=== PATIENT | male | born 1940 | race Caucasian/White ===

== ENCOUNTER 2020-12-03 08:36 | Inpatient (IN) | payer MEDICARE, BC ==
[2020-12-03 11:24] VITALS: BMI 24.9
[2020-12-03] MEDS ORDERED: Dextrose 50% Abboject 50 ML SYRINGE SLOW IVP PRN (12:04)
[2020-12-03] MEDS ORDERED: Ondansetron PF 4 MG/2 ML Vial IVP PRN (12:04)
[2020-12-03] MEDS ORDERED: Morphine 2 MG/ML VIAL SLOW IVP PRN (12:04)
[2020-12-03] MEDS ORDERED: Ondansetron ODT 4 MG TAB PO PRN (12:04)
[2020-12-03] MEDS ORDERED: Dextrose 5% in Water 1,000 ML IV PRN (12:04)
[2020-12-03] MEDS ORDERED: traMADol HCl 50 MG TAB PO PRN (12:09)
[2020-12-03] MEDS ORDERED: Cyclobenzaprine 10 MG TAB PO PRN (12:09)
[2020-12-03] MEDS ORDERED: Sodium Chloride 0.9% 1,000 ML IV SCH (12:15)
[2020-12-03] MEDS: Acetaminophen 500 MG TAB PO SCH ×2 (12:46→18:43)
[2020-12-03] MEDS: traMADol HCl 50 MG TAB PO SCH ×2 (12:47→18:42)
[2020-12-03 12:49] LABS: #Lymphocytes 0.9 thou/uL (1.20-3.40); #Monocytes 1.4 thou/uL (0.11-0.59); #Neutrophils 7.5 thou/uL (1.40-6.50); %Basophils 0.2 % (0.0-1.0); %Eosinophils 0.2 % (0.0-10.0); %Monocytes 14.1 % (0.0-10.0); %Neutrophils 76.5 % (42.0-75.0); Hemoglobin 11.6 g/dL (14.0-18.0); Mean Corpuscular HGB CONC 34.2 g/dL (32.0-36.0); Mean Corpuscular Hemoglobin 34.8 pg (27.0-31.0); Mean Platelet Volume 6.1 fL (7.4-10.4); Platelet Count 215 thou/uL (130-400); RBC Distribution Width 11.7 % (11.5-14.5); Red Blood Cell (RBC) Count 3.33 mill/uL (4.70-6.10); White Blood Cell (WBC) Count 9.8 thou/uL (4.8-10.8)
--- NOTE | 2020-12-03 12:49 | PDOC.H&P ---
- History & Physical HPI: Patient is a 80 M with a history of HTN who presents today as a direct admit from [place] for R hip fracture. [place] when he reports that he took a sharp turn and fell on his right side. He was helped up but has not been able to put weight on the leg since. He denies pain at this time other than when he moves his leg. He denies hitting his head or loss of consciousness. Denies feeling dizzy or lightheaded. He does admit to having had a few drinks that day. He denies history of falls. At baseline he ambulates without use of cane or walker. ROS: Review of systems negative except as indicated above. PMH: Hypertension PSH: Cataract surgery Social history: Lives at home with . Admits to alcohol use daily with dinner. Previously smoked 1 PPD for about 40 years. Denies illicit drug use. Medications: Allergies: NKDA Physical Exam- Vitals: General
[2020-12-03 13:10] LABS: ALT (SGPT) 15 U/L (8-55); AST (SGOT) 24 U/L (5-34); Albumin 3.9 g/dL (3.4-4.8); Alkaline Phosphatase 100 U/L (40-110); Anion Gap 15 mmol/L (10-20); BUN (Urea Nitrogen) 22 mg/dL (8.4-25.7); Bilirubin, Total 1.2 mg/dL (0.2-1.2); Calc. Creatinine Clearance 43 mL/min (70-130); Calcium 9.1 mg/dL (7.8-10.44); Carbon Dioxide 28 mmol/L (23-31); Chloride 92 mmol/L (98-107); Globulin 2.8 g/dL (2.4-3.5); Glucose 105 mg/dL (83-110); Magnesium 1.8 mg/dL (1.6-2.6); Phosphorus 5.1 mg/dL (2.3-4.7); Protein, Total 6.7 g/dL (5.8-8.1); Sodium 130 mmol/L (136-145)
--- NOTE | 2020-12-03 13:11 | RAD ---
RADIOGRAPH CHEST 1 VIEW: DATE: 12/03/2020 HISTORY: 80-year-old male for preoperative clearance FINDINGS: There is hyperinflation of the lungs, consistent with COPD. There is no evidence of airspace density, pulmonary edema, cardiomegaly, or pneumothorax. The lateral costophrenic angles are not effaced. IMPRESSION: 1) No acute cardiopulmonary findings. 2) emphysema.
--- NOTE | 2020-12-03 14:03 | RAD ---
XR Hip Rt 2-3 View INDICATION: 80-year-old male with concern for hip fracture COMPARISON: Right femur radiograph dated 12/03/2020 from [facility] FINDINGS: Bones: As seen on the comparison examination is a comminuted, angulated right hip intertrochanteric f racture. Hip joint: There is mild osteoarthrosis of the right hip. SI joints and symphysis pubis: Symphysis is not well seen. SI joint is normal-appearing. Intrapelvic contents: There are numerous phleboliths within the right hemipelvis. Surrounding soft tissues: There are moderate vascular calcifications seen involving the visualized va sculature. IMPRESSION: 1. Angulated comminuted right hip intertrochanteric fracture.
[2020-12-03] MEDS ORDERED: CEFAZOLIN 2 GM in Premix Bag 1 BAG IVPB SCH (14:15)
--- NOTE | 2020-12-03 15:00 | CON ---
DATE OF CONSULTATION: HISTORY OF PRESENT ILLNESS: We were asked by Emergency Room to see patient. The patient was at a casino in [place]. He went to step and turned and body did not follow and he ended up fracturing his right hip. loaded the patient into the car. They drove back to [place] thinking he might be able to be looked at there and fixed, and he was then transferred to our facility. Currently, he is resting in bed in room 3305 in no acute distress as long as we do not move him. Otherwise, the hip becomes quite painful. He said the ride to home was fairly uneventful, but he did have a good amount of pain with any bumps or jerks of the vehicle. He denies any other injuries. He did not have shortness of breath. He did not hit his head. He did not pass out. He remembers the event unfortunately vividly. The patient also has fairly thin skin and has an abrasion to his right forearm that has been dressed. PAST MEDICAL HISTORY: Hypertension. MEDICATIONS: Hypertension med. ALLERGIES: NO KNOWN DRUG ALLERGIES. PAST SURGICAL HISTORY: Cataracts. FAMILY HISTORY: For this event is noncontributory. SOCIAL HISTORY: He resides with in [place]. He is retired from the railroad. Quit smoking in 2004. Has occasional EtOH beverage before dinner. No drug products whatsoever. REVIEW OF SYSTEMS: A little forearm pain and right hip pain. Otherwise, denies any chest pain, shortness of breath, bowel or bladder problems. No headaches. We discussed other issues in regard to his health, and for the most part, he is a healthy man and denies rest of review of systems. PHYSICAL EXAMINATION: GENERAL: Well-nourished, well-developed male, alert, pleasant, in no acute distress. Speech clear. Affect pleasant. Answers questions appropriately. He is alert and oriented x3. HEENT: Scalp atraumatic. Face symmetric. Tongue midline. NECK: Supple. Trachea midline. MUSCULOSKELETAL: Upper extremities; equal size, shape, symmetry, normal bulk and tone. It is noted that he does have fairly thin skin to the arms and has some bruises on his arms with an abrasion to the right forearm. He is otherwise moving his upper extremities well. Strengths are intact. Respirations 16, in no acute distress. He has no pain with me rocking his pelvis, just when I put pressure near his right hip. Lower extremity exam; also equal size, shape, symmetry, normal bulk and tone. He does have some tenderness to palpation over the right groin, hip area. Movement causes increased pain. Otherwise, he is able to move his feet and toes bilaterally. Sensations, pulses equal. Cap refill is good. Feet are warm to the touch. IMAGING DATA: X-rays show an intertrochanteric fracture on the right. LABORATORY DATA: Hemoglobin 11.6, hematocrit 33.9, platelets normal. Chemistries, sodium is a little low at 130 . COVID is hopefully pending, I will check his lab orders for this. ASSESSMENT: Fall with ensuing right hip fracture. No loss of consciousness. PLAN: I spoke with the patient. After reviewing x-rays, I feel he would benefit from a dynamic hip screw (DHS) procedure. I explained the procedure to the patient. We will plan on doing this in the morning, so he can eat today and drink, and then he will be n.p.o. after midnight. He has already been placed on the surgical schedule. We went over risks and benefits of surgery. His questions and concerns have been addressed and he is amenable to go forth with surgery. I let him know his can come up and see him. He will probably need a COVID test if it has not already been ordered. Preop antibiotics ordered. If the patient or has questions prior to surgery tomorrow morning, we will go over them at that time with them. Job ID: [id number]
--- NOTE | 2020-12-03 15:54 | HP ---
CONSULTS: Orthopedic Surgery, Dr. Ray. CHIEF COMPLAINT: Mechanical fall last night, right hip pain. HISTORY OF PRESENT ILLNESS: This is a 80-year-old gentleman with a past medical history of hypertension who presented as a direct admit from [place] [facility] with right hip pain and right hip fracture. The patient states that he was at a casino when he tripped and fell last night, landing onto his right side. The patient did not hit his head or lose consciousness. The patient was assisted from the ground, but was unable to bear weight. The patient and his spouse drove back to his home in [place], where he seek to care. The patient did admit to having a few alcoholic beverages. The patient denied feeling lightheaded, dizzy, shortness of breath, or chest pain prior to the event. The patient ambulates without any assistance. REVIEW OF SYSTEMS: A 10-point review of systems is negative unless otherwise indicated in the above HPI. PAST MEDICAL HISTORY: Hypertension. PAST SURGICAL HISTORY: Cataract surgery. SOCIAL HISTORY: Lives at home with his , occasional alcohol use with dinner, previously smoked one pack a day for 40 years, denies illicit drug use. MEDICATIONS: Unable to obtain. He states he takes a blood pressure pill. ALLERGIES: NO KNOWN DRUG ALLERGIES. FAMILY HISTORY: Not pertinent. PHYSICAL EXAMINATION: VITAL SIGNS: Temperature 98.0, pulse 61, respirations 20, SpO2 of 93% on room air, blood pressure 138/75. GENERAL: Well-appearing elderly male, awake, alert, in no distress. HEENT: Head is atraumatic and normocephalic. Pupils are equal bilaterally. Midface is stable. Mucous membranes are moist. NECK: No cervical spine tenderness. Normal range of motion of neck. Trachea is midline. No JVD. RESPIRATORY: Good inspiratory and expiratory effort. Bilateral breath sounds clear. CARDIAC: Regular rate and regular rhythm. Mild pedal edema, nonpitting. ABDOMEN: Soft, nontender, nondistended. EXTREMITIES: Tenderness to palpation, right hip. Right lower extremity is shortened and externally rotated. Neurovascularly intact x4. The patient is able to dorsiflex and plantar flex. Strength is 5/5. NEUROLOGIC: No focal deficits. GCS is 15. SKIN: Warm and dry. Normal color. LABORATORY DATA: WBC 9.8, RBC 3.33, hemoglobin 11.6, hematocrit 33.9, platelets 215. Sodium 130, potassium 5.0, chloride 92, creatinine 1.59, estimated GFR 42, glucose 105, calcium 9.1, phosphorus 5.1, magnesium 1.8, AST 24, ALT 15, alkaline phosphatase 100, albumin 3.9. DIAGNOSTIC DATA: Chest x-ray; impression, 1. No acute cardiac cardiopulmonary findings. 2. Emphysema. Right hip x-ray; impression, angulated comminuted right hip intertrochanteric fracture. ASSESSMENT: 1. Mechanical fall. 2. Right intertrochanteric hip fracture. 3. Hyponatremia. PLAN: Admit to the surgical floor. Pain control. Regular diet today. N.p.o. after midnight as Orthopedic Surgery plans to take the patient to the OR tomorrow morning for repair. PT and OT to evaluate and treat postop. We will place a rehab screen for continued physical therapy. The plan was discussed with the attending who agrees. Job ID: [id number]
[2020-12-03] MEDS: Sodium Chloride 0.9% 1,000 ML IV SCH ×2 (17:11→21:22)
[2020-12-03] MEDS: Famotidine 20 MG TAB PO SCH (21:19)
[2020-12-03] MEDS: Senokot S 8.6-50 MG TAB PO SCH (21:19)
[2020-12-03] MEDS: Carvedilol 25 MG TAB PO SCH (21:20)
[2020-12-03 22:20] LABS: SARS-CoV-2 PCR by NAA Not Detected (NotDetected)
[2020-12-04] MEDS: Acetaminophen 500 MG TAB PO SCH ×4 (00:45→20:06)
[2020-12-04] MEDS: traMADol HCl 50 MG TAB PO SCH ×4 (00:46→20:07)
[2020-12-04 06:18] LABS: Hemoglobin 9.3 g/dL (14.0-18.0); Mean Corpuscular HGB CONC 33.6 g/dL (32.0-36.0); Mean Platelet Volume 6.5 fL (7.4-10.4); Platelet Count 188 thou/uL (130-400); RBC Distribution Width 11.8 % (11.5-14.5); Red Blood Cell (RBC) Count 2.73 mill/uL (4.70-6.10); White Blood Cell (WBC) Count 8.6 thou/uL (4.8-10.8)
[2020-12-04 06:31] LABS: Band 10 % (5-11); Lymphocytes 7 % (21-51); MDiff Complete? YES; Monocytes 11 % (0-10); Neutrophil 72 % (42-75)
[2020-12-04 06:52] LABS: Phosphorus 4.4 mg/dL (2.3-4.7)
[2020-12-04 06:55] LABS: Anion Gap 11 mmol/L (10-20); BUN (Urea Nitrogen) 30 mg/dL (8.4-25.7); Calc. Creatinine Clearance 44 mL/min (70-130); Calcium 8.3 mg/dL (7.8-10.44); Carbon Dioxide 27 mmol/L (23-31); Chloride 96 mmol/L (98-107); Glucose 113 mg/dL (83-110); Magnesium 1.9 mg/dL (1.6-2.6); Potassium 4.6 mmol/L (3.5-5.1); Sodium 129 mmol/L (136-145)
[2020-12-04] MEDS ORDERED: Fentanyl 100 MCG/2 ML VIAL ONE (08:08)
[2020-12-04] MEDS ORDERED: Phenylephrine 10 MG/ML VIAL ONE (08:36)
[2020-12-04] MEDS ORDERED: Ketamine 50 MG/ML (10ML VIAL) ONE (08:36)
[2020-12-04] MEDS ORDERED: Albumin 5% 500 ML ONE (08:36)
[2020-12-04] MEDS: Carvedilol 25 MG TAB PO SCH ×2 (09:00→20:07)
[2020-12-04] MEDS: Polyethylene Glycol 3350 17 GM Packet PO SCH (09:00)
[2020-12-04] MEDS: Famotidine 20 MG TAB PO SCH ×2 (09:00→20:06)
[2020-12-04] MEDS: Senokot S 8.6-50 MG TAB PO SCH ×2 (09:00→20:07)
[2020-12-04] MEDS ORDERED: Midazolam HCl 2 mg/2 ml Vial ONE (09:01)
--- NOTE | 2020-12-04 09:30 | RAD ---
EXAM: XR Hip Rt 2-3 View PROVIDED CLINICAL HISTORY: ORIF COMPARISON: 12/03/2020 FINDINGS: 2 spot fluoroscopic images of the right hip demonstrate interval ORIF of previously described intertr ochanteric femoral fracture with associated improved alignment. IMPRESSION: As above.
[2020-12-04] MEDS ORDERED: Dexamethasone 20 MG/5 ML VIAL ONE (09:35)
[2020-12-04] MEDS ORDERED: ePHEDrine 50 MG/ML VIAL ONE (09:35)
[2020-12-04] MEDS ORDERED: PROPOFOL 200 MG/20 ML VIAL ONE (09:35)
[2020-12-04] MEDS ORDERED: PHENYLEPHRINE-NS 100 MCG/ML 10 ML SYRINGE ONE (09:35)
[2020-12-04] MEDS ORDERED: Glycopyrrolate 0.2 MG/ML 5 ML SYRINGE ONE (09:35)
[2020-12-04] MEDS ORDERED: Lidocaine 1% PF 5 ML VIAL ONE (09:35)
[2020-12-04] MEDS ORDERED: Ondansetron PF 4 MG/2 ML Vial ONE (09:35)
[2020-12-04] MEDS ORDERED: Rocuronium Bromide 10 MG/ML (10ML VIAL) ONE (09:35)
[2020-12-04] MEDS: Sodium Chloride 0.9% 1,000 ML IV SCH (12:45)
[2020-12-04] MEDS ORDERED: Lactated Ringer's 1,000 ML IV SCH (13:15)
[2020-12-04] MEDS: Lactated Ringer's 1,000 ML IV SCH (14:27)
[2020-12-04] MEDS: CEFAZOLIN 2 GM in Premix Bag 1 BAG IVPB SCH (15:58)
--- NOTE | 2020-12-04 19:02 | OP ---
DATE OF PROCEDURE: 12/04/2020 PREOPERATIVE DIAGNOSIS: Right intertrochanteric femur fracture. POSTOPERATIVE DIAGNOSIS: Right intertrochanteric femur fracture. PROCEDURE PERFORMED: Right TFNA for intertrochanteric femur fracture. ANESTHESIA: General. CONTAINERS SALES REPRESENTATIVE: Lazaro Acosta PA-C. ESTIMATED BLOOD LOSS: 50 mL. IMPLANTS: Synthes TFN measuring 11 x 170 mm with a 100 mm hip screw. COMPLICATIONS: None. DRAINS: None. SPECIMEN: None. OUTCOME: Satisfactory. INDICATIONS FOR PROCEDURE: The patient is a 80-year-old gentleman, status post fall, which he sustained on December 02, 2020, while in a casino in [place]. The patient and his opted to return home to the [place] area only to find that they did not have Orthopedic Surgery availability in [place]. As such, the patient was subsequently transferred to [place], [place] for orthopedic care. The patient was found to have a right intertrochanteric femur fracture with displacement, and as such, now to undergo stabilization. Informed consent has been obtained. I believe all questions have been answered. DESCRIPTION OF PROCEDURE: The patient was brought to the operating room and a time-out performed, followed by induction of general anesthesia. Next, the patient was positioned supine on the fracture table with the injured extremity held in longitudinal traction and slight internal rotation while the well leg was held in extension at the hip to allow for AP and lateral C-arm imaging of the right hip. Next, a sterile prep and drape were performed in the right lateral thigh. A small incision was made proximal to the greater trochanter. After skin was sharply incised, dissection was carried down bluntly such that the tip of the greater trochanter could be palpated. A threaded guidewire was then passed at the tip of the greater trochanter down into the proximal femoral canal. Next, a reamer was passed over this threaded guidewire. Next, an 11 x 170 mm TFN nail was passed from the starting point down into the proximal shaft of the femur while my assistant professor of education provided reduction of the fracture. Once the nail past the fracture and entered into the intramedullary canal proximally, C-arm imaging was used to determine an appropriate depth for delivery of the nail. While my assistant professor of education maintained reduction of the fracture, a second small incision was made distal to the first and the jig for placement of the hip screw was introduced. A threaded guidewire was passed through this jig across the lateral cortex of the femur up the femoral neck into the femoral head, approaching a [id number] position. Once appropriately positioned, measurement was taken off this jig and then appropriate reaming depth performed over the threaded guidewire and then a 100 mm hip screw introduced. The locking mechanism was then engaged by my assistant professor of education and backed off a half turn to allow for sliding of the hip screw. Next, the same outrigger jig was used to place a single distal cross-lock screw in standard fashion. At completion of this, my assistant professor of education removed the jig from the proximal nail and then final AP and lateral C-arm images were obtained that showed acceptable alignment of hardware and a reasonable reduction of the fracture. The 2 small incisions were then irrigated with bulb syringe with the proximal one closed in layers with 0 Vicryl deep, followed by 2-0 Vicryl and elpidio. The distal incision closed with elpidio. Xeroform gauze and tape dressing were applied to the lateral thigh, and then the patient was transferred to recovery room in stable condition. There were no complications. The patient tolerated the procedure well. Job ID: [id number]
[2020-12-05] MEDS: CEFAZOLIN 2 GM in Premix Bag 1 BAG IVPB SCH ×2 (00:51→07:58)
[2020-12-05] MEDS: Acetaminophen 500 MG TAB PO SCH ×4 (00:55→20:06)
[2020-12-05] MEDS: traMADol HCl 50 MG TAB PO SCH ×4 (00:56→20:06)
[2020-12-05] MEDS: Lactated Ringer's 1,000 ML IV SCH (02:12)
[2020-12-05 05:35] LABS: #Lymphocytes 0.7 thou/uL (1.20-3.40); #Monocytes 1.6 thou/uL (0.11-0.59); #Neutrophils 10.4 thou/uL (1.40-6.50); %Lymphocytes 5.4 % (21.0-51.0); %Monocytes 12.3 % (0.0-10.0); %Neutrophils 82.2 % (42.0-75.0); Hemoglobin 8.3 g/dL (14.0-18.0); Mean Corpuscular HGB CONC 34.1 g/dL (32.0-36.0); Mean Corpuscular Hemoglobin 34.7 pg (27.0-31.0); Mean Platelet Volume 6.8 fL (7.4-10.4); Platelet Count 174 thou/uL (130-400); RBC Distribution Width 11.7 % (11.5-14.5); White Blood Cell (WBC) Count 12.6 thou/uL (4.8-10.8)
[2020-12-05 06:30] LABS: Anion Gap 9 mmol/L (10-20); BUN (Urea Nitrogen) 26 mg/dL (8.4-25.7); Calc. Creatinine Clearance 54 mL/min (70-130); Calcium 8.2 mg/dL (7.8-10.44); Carbon Dioxide 27 mmol/L (23-31); Chloride 100 mmol/L (98-107); Glucose 134 mg/dL (83-110); Magnesium 1.7 mg/dL (1.6-2.6); Phosphorus 2.2 mg/dL (2.3-4.7); Potassium 4.7 mmol/L (3.5-5.1); Sodium 131 mmol/L (136-145)
--- NOTE | 2020-12-05 07:21 | PRG ---
DATE OF SERVICE: 12/04/2020 SUBJECTIVE: Mr. Shah is a 80-year-old male patient, status post ground level fall, currently in the OR today for repair of a right IT fracture. The patient is seen this morning, resting comfortably, complaining of some pain. Pain should improve postoperatively. We will adjust pain regimen as needed. PT/OT was consulted. OBJECTIVE: VITAL SIGNS: Temperature 97.5, pulse 66, respiratory rate 16, O2 saturation 93% on room air, and blood pressure 128/87. GENERAL: Well-appearing, elderly male, awake, alert, in no distress. HEAD: Normocephalic, atraumatic. CARDIOVASCULAR: Regular rate and rhythm. LUNGS: No accessory muscle use. Speaking full sentences. MUSCULOSKELETAL: Right hip pain to palpation. Neurovascularly intact x4. LABORATORY DATA: White blood cell count 8.6, hemoglobin 9.3, hematocrit 27.7, and platelets 188. Chemistry; sodium 129, potassium 4.6, chloride 96, BUN 30, creatinine 1.56, glucose 113. ASSESSMENT: 1. Mechanical fall. 2. Right intertrochanteric hip fracture, status post . 3. Hyponatremia, most likely chronic, monitor closely. 4. Acute kidney injury, BUN 30, creatinine 1.56. PLAN: 1. The patient postoperatively will be sent to the surgical floor. We will start the patient on aggressive pain regimen, PT/OT, and continue mechanical DVT prophylaxis. 2. Animal Services Officer the patient on pulmonary toilet and IS. Acute care screening rehab visit has been placed. 3. Start the patient on LR for JANIS. 4. Replete electrolytes as needed. Job ID: [id number] [facility]
[2020-12-05] MEDS: hydrALAZINE 20 MG/ML VIAL SLOW IVP PRN (08:00)
[2020-12-05] MEDS: Polyethylene Glycol 3350 17 GM Packet PO SCH (08:00)
[2020-12-05] MEDS: Senokot S 8.6-50 MG TAB PO SCH ×2 (08:03→20:07)
[2020-12-05] MEDS: Famotidine 20 MG TAB PO SCH ×2 (08:03→20:06)
[2020-12-05] MEDS: Carvedilol 25 MG TAB PO SCH ×2 (08:03→20:06)
[2020-12-05] MEDS ORDERED: Magnesium 2 GM/50 ML 2 GM in Premix Bag 1 BAG IVPB SCH (10:00)
[2020-12-05] MEDS: Aspirin 81 mg Enteric Coated Tablet PO SCH (20:21)
[2020-12-06] MEDS: Acetaminophen 500 MG TAB PO SCH ×4 (00:09→18:48)
[2020-12-06] MEDS: traMADol HCl 50 MG TAB PO SCH ×4 (00:10→19:02)
[2020-12-06 05:42] LABS: #Lymphocytes 1.4 thou/uL (1.20-3.40); #Monocytes 1.5 thou/uL (0.11-0.59); #Neutrophils 8.8 thou/uL (1.40-6.50); %Basophils 0.2 % (0.0-1.0); %Eosinophils 0.3 % (0.0-10.0); %Lymphocytes 11.9 % (21.0-51.0); %Monocytes 13.1 % (0.0-10.0); %Neutrophils 74.5 % (42.0-75.0); Hemoglobin 8.2 g/dL (14.0-18.0); Mean Corpuscular Hemoglobin 33.6 pg (27.0-31.0); Mean Platelet Volume 6.9 fL (7.4-10.4); Platelet Count 197 thou/uL (130-400); RBC Distribution Width 12.1 % (11.5-14.5); Red Blood Cell (RBC) Count 2.44 mill/uL (4.70-6.10); White Blood Cell (WBC) Count 11.8 thou/uL (4.8-10.8)
[2020-12-06 06:06] LABS: Anion Gap 10 mmol/L (10-20); BUN (Urea Nitrogen) 22 mg/dL (8.4-25.7); Calc. Creatinine Clearance 76 mL/min (70-130); Calcium 8.6 mg/dL (7.8-10.44); Carbon Dioxide 28 mmol/L (23-31); Chloride 98 mmol/L (98-107); Glucose 103 mg/dL (83-110); Magnesium 1.9 mg/dL (1.6-2.6); Phosphorus 2.1 mg/dL (2.3-4.7); Potassium 4.6 mmol/L (3.5-5.1); Sodium 131 mmol/L (136-145)
--- NOTE | 2020-12-06 07:06 | PRG ---
DATE OF SERVICE: 12/05/2020 SUBJECTIVE: A 80-year-old male patient, status post ground level fall, postop day #1, repair of right IT fracture. The patient was seen in morning rounds, sitting upright in bed, resting comfortably. The patient's pain was well controlled. The patient worked with PT today, was able to sit at edge of bed. The patient has Medicare and Blue Cross Blue Shield, post-acute screen was placed. Discussed with Case Management, Samuel Bull, to send out rehab to [facility]. OBJECTIVE: VITAL SIGNS: Temperature 98.1, pulse 75, O2 saturation 86% on room air, and blood pressure 136/62. GENERAL: An elderly male, sitting upright in bed, in no acute distress. HEAD: Normocephalic, atraumatic. CARDIOVASCULAR: Regular rate and rhythm. LUNGS: No accessory muscle use. Speaking full sentences. MUSCULOSKELETAL: Right hip pain to palpation. Dressing intact. No strikethrough. LABORATORY DATA: White blood cell count 12.6, hemoglobin 8.3, hematocrit 24, platelets 174. Chemistry; sodium 131, potassium 4.7, chloride 100, BUN 26, creatinine 1.26. ASSESSMENT: 1. Status post mechanical fall. 2. Right TFNA for intertrochanteric femur fracture. Postop day #1. 3. Hyperphosphatemia, most likely chronic. Monitor closely. 4. Acute kidney injury. BUN and creatinine 26 and 1.26 today, downtrending, improving. PLAN: 1. The patient is recovering well on the surgical floor. Continue PT/OT with weightbearing precautions. 2. DVT prophylaxis, GI prophylaxis, pulmonary toilet. 3. Acute care screening rehab has been placed. Follow up with Case Management tomorrow. 4. Discontinue fluids. The patient is tolerating a regular diet. 5. JANIS is resolving. No labs tomorrow. Job ID: [id number] [facility]
[2020-12-06] MEDS: Famotidine 20 MG TAB PO SCH (08:35)
[2020-12-06] MEDS: PHOS-NAK 1 PKT PACK PO SCH ×3 (08:35→18:49)
[2020-12-06] MEDS: Senokot S 8.6-50 MG TAB PO SCH ×2 (08:35→20:01)
[2020-12-06] MEDS: Aspirin 81 mg Enteric Coated Tablet PO SCH ×2 (08:35→20:01)
[2020-12-06] MEDS: Carvedilol 25 MG TAB PO SCH ×2 (08:35→20:03)
[2020-12-06] MEDS: Polyethylene Glycol 3350 17 GM Packet PO SCH (08:35)
--- NOTE | 2020-12-06 15:39 | PRG ---
DATE OF SERVICE: SUBJECTIVE: The patient remains on the surgical floor. He is status post ground level fall which he sustained a right intertrochanteric femur fracture, which he has undergone repair. He has been working with Physical and occupational Therapy. He is tolerating a diet. His pain is controlled and he is currently awaiting placement. Originally, we are hoping to get him to [facility], but we have been informed that they no longer offer that service there. Case Management is working on other options, but the patient currently states that he just wants to go home with home health and home PT. We will discuss with therapy once they feel this is a viable option. OBJECTIVE: VITAL SIGNS: Temperature 98.1, heart rate 81, blood pressure 132/67, respirations 16, and oxygen saturation 93% on room air. GENERAL: The patient is resting comfortably in bed. He is awake, alert, conversant, appropriate. [place] Coma Scale is 15. HEENT: Unremarkable. RESPIRATIONS: Nonlabored with equal rise and fall of his chest. ABDOMEN: Nondistended. EXTREMITIES: Neurovascularly intact x4. LABORATORY FINDINGS: White blood cell count 11.8, hemoglobin 8.2, hematocrit 24.9, platelets 197. Sodium 131, potassium 4.6, chloride 98, CO2 of 28, BUN 22, creatinine 0.90, glucose 103, magnesium 1.9, phosphorus 2.1. IMAGING STUDIES: There are no radiographs to review this morning. ASSESSMENT: 1. Status post ground level fall. 2. Status post right TFNA for intertrochanteric femur fracture. 3. Chronic hyponatremia, stable. PLAN: Plan will be to continue supportive care, encourage physical and occupational therapy, and discuss placement options to include home with home health and home PT. The patient was evaluated this morning with Dr. Evangelista during rounds. Job ID: [id number]
[2020-12-06] MEDS: Tamsulosin HCl 0.4 MG CAP PO SCH (20:02)
[2020-12-07] MEDS: Carvedilol 25 MG TAB PO SCH ×3 (00:07→20:15)
[2020-12-07] MEDS: Acetaminophen 500 MG TAB PO SCH ×4 (00:08→14:08)
[2020-12-07] MEDS: traMADol HCl 50 MG TAB PO SCH ×4 (00:09→17:18)
[2020-12-07 05:44] LABS: #Basophils 0.1 thou/uL (0.0-0.2); #Eosinphils 0.5 thou/uL (0.0-0.7); #Lymphocytes 1.8 thou/uL (1.20-3.40); #Monocytes 1.3 thou/uL (0.11-0.59); #Neutrophils 6.5 thou/uL (1.40-6.50); %Basophils 0.8 % (0.0-1.0); %Eosinophils 4.9 % (0.0-10.0); %Lymphocytes 17.2 % (21.0-51.0); %Monocytes 13.2 % (0.0-10.0); Hemoglobin 8.1 g/dL (14.0-18.0); Mean Corpuscular HGB CONC 33.3 g/dL (32.0-36.0); Mean Corpuscular Hemoglobin 34.6 pg (27.0-31.0); Mean Platelet Volume 6.6 fL (7.4-10.4); Platelet Count 204 thou/uL (130-400); Red Blood Cell (RBC) Count 2.35 mill/uL (4.70-6.10); White Blood Cell (WBC) Count 10.2 thou/uL (4.8-10.8)
[2020-12-07] MEDS: PHOS-NAK 1 PKT PACK PO SCH ×3 (07:52→17:17)
[2020-12-07] MEDS: Senokot S 8.6-50 MG TAB PO SCH ×2 (07:53→20:14)
[2020-12-07] MEDS: Polyethylene Glycol 3350 17 GM Packet PO SCH (07:53)
[2020-12-07] MEDS: Aspirin 81 mg Enteric Coated Tablet PO SCH ×2 (07:55→20:14)
[2020-12-07] MEDS ORDERED: Amlodipine 5 MG TAB PO SCH (09:00)
[2020-12-07] MEDS ORDERED: Losartan 25 MG TAB PO SCH (09:00)
--- NOTE | 2020-12-07 14:29 | PRG ---
DATE OF SERVICE: 12/07/2020 RESIDENT: LISSA MIRZA MD The patient was evaluated and discussed with Dr. Evangelista this morning, and he agrees with the plan as stated below. SUBJECTIVE: The patient was resting comfortably in bed this morning with physical therapy about to work with him. He states his pain is very well controlled when not moving. He was able to get up with the help of his nurse this morning to go to the bathroom and stated that he got dizzy. He described the dizziness as a feeling like he was about to pass out. In speaking to his , she stated that he was recently taken off his amlodipine by his PCP due to dizziness that was thought to be a side effect of this medication. The patient was resistant to going to rehab or SNF and wanted to go home with home health, but it appears that his feels she would not be able to take proper care of him in that setting and has requested that he be sent to a detention facility. OBJECTIVE: VITAL SIGNS: He has been afebrile. His heart rate has been normal in the 60s to 70s. His respirations within normal limits, 16 to 18 RPMs. He has been saturating in the low 90s on room air. His blood pressure has ranged from the 150 to 180 systolic over 60s to 80s diastolic. GENERAL: He is resting comfortably in bed, awake, alert, and in no acute distress. HEENT: NC/AT. RESPIRATIONS: Nonlabored, no acute distress. ABDOMEN: Nondistended. EXTREMITIES: Able to move all 4 extremities. NEUROLOGIC: No focal deficit. LABORATORY FINDINGS: The CBC shows a white count of 10.2, showing his leukocytosis has been resolved. Hemoglobin of 8.1, stable in the past few days. His hematocrit has been 24.4, stable. MCV was elevated at 104, stable throughout stay. His platelets are 204. These were the only labs obtained today. IMAGING STUDIES: There were no images to review this morning. ASSESSMENT: 1. Status post ground level fall. 2. Status post right TFNA for intertrochanteric femur fracture. 3. Near syncopal event. PLAN: We will discontinue his amlodipine today as instructed by his PCP. It is possible that his dizziness is also due to starting Flomax yesterday, so we will continue to monitor his blood pressures and possible orthostasis during his stay. Orthostatic vitals have been ordered to evaluate for this. His blood pressures have continued to be elevated, but his home medications were just restarted earlier today, so we expect they will take a while to get under better control. Case Management is working on placement at a detention facility. He also has not yet had a bowel movement, despite being on a scheduled bowel regimen. We will continue to watch this and manage his pain and diet throughout his stay. Job ID: [id number]
[2020-12-07] MEDS: Ferrous Sulfate 325 MG TAB PO SCH (17:17)
[2020-12-07] MEDS: Losartan 25 MG TAB PO SCH (20:14)
[2020-12-07] MEDS: Ascorbic Acid 500 mg Chewable Tablet PO SCH (20:14)
[2020-12-07] MEDS: Tamsulosin HCl 0.4 MG CAP PO SCH (20:15)
[2020-12-08] MEDS: traMADol HCl 50 MG TAB PO SCH ×2 (02:31→06:35)
[2020-12-08] MEDS: Acetaminophen 500 MG TAB PO SCH ×4 (02:31→17:04)
[2020-12-08] MEDS: hydrALAZINE 20 MG/ML VIAL SLOW IVP PRN (03:59)
[2020-12-08] MEDS: Senokot S 8.6-50 MG TAB PO SCH ×2 (08:45→21:25)
[2020-12-08] MEDS: Polyethylene Glycol 3350 17 GM Packet PO SCH (08:45)
[2020-12-08] MEDS: Ascorbic Acid 500 mg Chewable Tablet PO SCH ×2 (08:45→21:26)
[2020-12-08] MEDS: Aspirin 81 mg Enteric Coated Tablet PO SCH ×2 (08:45→21:25)
[2020-12-08] MEDS: Ferrous Sulfate 325 MG TAB PO SCH ×2 (08:45→17:04)
[2020-12-08] MEDS: PHOS-NAK 1 PKT PACK PO SCH (08:45)
[2020-12-08] MEDS: Carvedilol 25 MG TAB PO SCH ×2 (08:45→21:25)
[2020-12-08] MEDS ORDERED: Lactated Ringer's 1,000 ML IV SCH (12:45)
[2020-12-08] MEDS ORDERED: Lactated Ringer's 500 ML IV SCH (13:15)
--- NOTE | 2020-12-08 14:37 | PRG ---
DATE OF SERVICE: 12/08/2020 The patient was evaluated and discussed with Dr. Evangelista this morning, who agrees with the plan as stated below. SUBJECTIVE: Mr. Shah was lying comfortably in bed, in no acute distress. He is eager to get out of the hospital. He states he has essentially no pain when lying still, but when moving and working with physical therapy, his pain reaches as high as 5/10 on the pain scale. He continues to deny having any bowel movements. He continues to endorse dizziness when in the upright position. Yesterday, this did not seem to bother him when working with physical therapy, but it did bother him when he was sitting in his chair. He states that he did not have issues with this prior to coming to the hospital. In talking with his yesterday, we found out his PCP discontinued his amlodipine due to Mr. Shah experiencing dizziness, presumably 2/2 hypotension. He still has a Pena in place, which is due to issues with urinary retention earlier in his hospital stay. OBJECTIVE: VITAL SIGNS: He has been afebrile. His heart rate has been normal in the 70s. His respirations have been normal, 16 to 18. He has been saturating in the low to mid 90s on room air. His blood pressures have been in the systolic 150s to 180s and diastolic 60s to 80s, when lying down. Orthostatic vitals from this morning show a supine blood pressure of 100/58; sitting blood pressure of 82/49; standing blood pressure of 70/44, suggestive of orthostatic hypotension. GENERAL: He is resting comfortably in bed, awake, alert, and in no acute distress. HEENT: NC/AT. CARDIOVASCULAR: Regular rate and rhythm. RESPIRATORY: In no acute distress, equal rise and fall of chest. ABDOMEN: Nondistended. EXTREMITIES: Able to move all four extremities. NEUROLOGIC: No focal deficit. LABORATORY FINDINGS: There were no labs to review this morning. IMAGING STUDIES: There were no images to review this morning. ASSESSMENT: 1. Status post ground level fall. 2. Status post right TFNA for intertrochanteric femur fracture. 3. Orthostatic hypotension. PLAN: We will discontinue his Flexeril and hydralazine to attempt to decrease any medications that could cause him hypotension or dizziness. We will also change his tramadol from scheduled to as needed for pain, for the same reason. His Pena continues to be in place because of urinary retention. His nurses were having to in-and-out cath him every time he needed to go to the restroom. We will recommend followup with Urology S/P discharge. We will give him a fluid bolus today to attempt to help raise his blood pressure, as he appears to have a balance of -1470 mL. We will continue to watch his balance as this could be contributing to his hypotension. Aside from this, he will have to be educated on behavioral changes he can make to counteract the orthostasis and avoid syncopal events or falls. He has been accepted at [facility] and is currently pending bed availability for discharge. Job ID: [id number]
[2020-12-08] MEDS: Losartan 25 MG TAB PO SCH (21:25)
[2020-12-08] MEDS: Tamsulosin HCl 0.4 MG CAP PO SCH (21:26)
[2020-12-09] MEDS: Acetaminophen 500 MG TAB PO SCH ×4 (01:50→18:03)
[2020-12-09] MEDS ORDERED: Bisacodyl 10 MG SUPP PR SCH (09:00)
[2020-12-09] MEDS: Ascorbic Acid 500 mg Chewable Tablet PO SCH ×2 (09:31→20:32)
[2020-12-09] MEDS: Ferrous Sulfate 325 MG TAB PO SCH ×2 (09:31→18:03)
[2020-12-09] MEDS: Carvedilol 25 MG TAB PO SCH ×2 (09:31→20:27)
[2020-12-09] MEDS: Polyethylene Glycol 3350 17 GM Packet PO SCH (09:31)
[2020-12-09] MEDS: Aspirin 81 mg Enteric Coated Tablet PO SCH ×2 (09:31→20:26)
[2020-12-09] MEDS: Senokot S 8.6-50 MG TAB PO SCH ×2 (09:32→20:27)
--- NOTE | 2020-12-09 14:26 | PRG ---
DATE OF SERVICE: 12/09/2020 RESIDENT: Eleni Paez MD The patient was then evaluated and discussed with Dr. Evangelista, and he agrees with the plan as stated below. SUBJECTIVE: Mr. Shha was sitting comfortably in his chair and watching TV. He is no acute distress. He continues to be eager to get out of the hospital. He continues to endorse virtually no pain while sitting still and states that his pain is manageable even while working with physical therapy. He continues to deny having any bowel movements. Today, he denies any episodes of dizziness when working with physical therapy, while lifting/transfer from his bed to his chair. He has no complaints or concerns at this time. OBJECTIVE: VITAL SIGNS: He has been afebrile. His pulse has been normal in the 60s to 70s. His respirations have been normal, 16 to 18. He has been saturating in the 90s on room air. His blood pressure has continued to be a bit elevated in the 150s to 160s systolic over 60s to 70s. GENERAL: Elderly, thin man, sitting in his chair comfortably, watching TV. He seems more upright than he has in the past few days. HEENT: NC/AT. No dentition. CARDIOVASCULAR: Regular rate and rhythm. RESPIRATORY: Equal rise and fall of chest. No respiratory distress. EXTREMITIES: Able to move all 4 extremities. NEUROLOGIC: No focal deficit. LABORATORY FINDINGS: There were no labs to review this morning. IMAGING STUDIES: There were no images to review this morning. ASSESSMENT: 1. Status post ground level fall. 2. Status post right TFNA for intertrochanteric femur fracture. 3. Orthostatic hypotension with dizziness, improving. PLAN: 1. We will continue to monitor his fluid balance as the small fluid bolus he got yesterday seems to have helped widen him up. It is possible that this is also the reason for his dizziness on standing and sitting has resolved. We will continue to watch this. 2. We will leave his Pena in place because of issues with urinary retention, to be followed up with Urology in the outpatient setting. 3. We have added on some lactulose to help stimulate a bowel movement and he has not had one since being here on scheduled MiraLAX and senna. He has been accepted at [facility] and is currently pending bed availability prior to discharge. Job ID: [id number]
[2020-12-09 20:25] VITALS: BP 118/73; TEMP 97.9
[2020-12-09] MEDS: Losartan 25 MG TAB PO SCH (20:26)
[2020-12-09] MEDS: Tamsulosin HCl 0.4 MG CAP PO SCH (20:27)
--- NOTE | 2020-12-10 04:24 | DIS ---
DATE OF ADMISSION: 12/03/2020 DATE OF DISCHARGE: 12/09/2020 RESIDENT: Eleni Paez MD ADMITTING AND DISCHARGE ATTENDING: Fabrizio Evangelista DO CONSULTS: Orthopedic Surgery, Dr. Ray (12/03). PROCEDURES: 1. Chest x-ray (12/03/2020) - emphysema with no acute cardiopulmonary findings. 2. Hip x-ray (12/03/2020) - angulated, comminuted right hip intertrochanteric fracture. 3. Hip x-ray (12/04) - two spot fluoroscopic images of the right hip demonstrate interval ORIF of previously described IT femoral fracture with associated improved alignment. 4. Right TFNA for IT femur fracture with Dr. Ray (12/04). PRIMARY DIAGNOSES: 1. Mechanical fall. 2. Right intertrochanteric hip fracture. 3. Hyponatremia. 4. Orthostatic hypotension, improving. SECONDARY DIAGNOSES: 1. Hypertension. 2. Benign prostatic hypertrophy. DISCHARGE MEDICATIONS: 1. Carvedilol 25 mg p.o. b.i.d. 2. Loratadine 10 mg p.o. daily. 3. Losartan 100 mg p.o. daily. 4. Tramadol 50 mg p.o. q.6h p.r.n. 5. Tamsulosin 0.4 mg p.o. at bedtime. 6. Senokot two tablets p.o. b.i.d. p.r.n. 7. MiraLAX 17 g p.o. daily p.r.n. 8. Zofran 4 mg p.o. q.6h p.r.n. 9. Lactulose 20 g p.o. daily p.r.n. 10. Ferrous sulfate 325 mg p.o. b.i.d. - WM. 11. Dulcolax 10 mg daily p.r. daily p.r.n. 12. Aspirin 81 mg p.o. b.i.d. 13. Vitamin C 500 mg p.o. b.i.d. 14. Acetaminophen 1000 mg p.o. q.6h. DISCONTINUED MEDICATIONS: None. HISTORY OF PRESENT ILLNESS/HOSPITAL COURSE: This is a 80-year-old gentleman, who presented as a direct admit from [facility] with right hip pain and right hip fracture after he tripped and fell, and landed on his right side. On evaluation, he was found to have an angulated, comminuted right hip IT fracture. Orthopedic Surgery was consulted and was admitted to the surgical floor. On 12/04, the patient was taken for right TFNA for his fracture. There were no complications and he tolerated the surgery well. He was evaluated by PT and OT, who recommended rehab. The patient was approved to go to [place]. During his hospitalization, there were issues with urinary retention, such that a Pena catheter had to be placed. We are recommending that the patient follow up with a urologist after discharge to have this evaluated. He was started on Flomax 0.4 mg during this hospital stay in an attempt to help with this issue. DISPOSITION: Stable. DISCHARGE INSTRUCTIONS: 1. Location: [facility]. 2. Diet: Heart healthy - low sodium. 3. Activity: As tolerated, with orthopedic limitations of weightbearing as tolerated of all extremities. 4. Followup : The patient is encouraged to follow up with Dr. Sanchez in one week. 5. The patient is encouraged to follow up with his PCP in 7 to 10 days. Job ID: [id number]
== END 2020-12-09 20:48 | DRG 481 ==
LOC: SURG A 08:36
PROVIDERS: ADMIT Surgery; ATTEND Surgery
PROC: 0QH636Z Insertion of Intramedullary Internal Fixation Device into Right Upper Femur, Percutaneous Approach (ICD-10-PCS; principal; 2020-12-04)
DX: S72.141A Displaced intertrochanteric fracture of right femur, initial encounter for closed fracture (principal); E87.1 Hypo-osmolality and hyponatremia; N17.9 Acute kidney failure, unspecified; Z20.822 Contact with and (suspected) exposure to COVID-19; E83.39 Other disorders of phosphorus metabolism; I10 Essential (primary) hypertension; W19.XXXA Unspecified fall, initial encounter; I95.1 Orthostatic hypotension; Y92.59 Other trade areas as the place of occurrence of the external cause; Z87.891 Personal history of nicotine dependence
CPT/HCPCS: 36415; 71045; 76000; 80048; 80053; 83735; 84100; 85025; 87635; 93005; 93010; C1713; J0360; J0690; J1100; J2250; J2370; J2405; J2704; J3010; J3475; J3490; P9045; U0003; U0005